=== PATIENT | male | born 1985 | race Caucasian/White ===

== ENCOUNTER 2016-03-24 08:32 | Outpatient (CLI) | payer OTHER ==
--- NOTE | 2016-03-24 13:31 | MRI Report ---
EXAM: MRI PELVIS WITHOUT CONTRAST EXAM DATE: 03/24/2016 09:34 AM. CLINICAL HISTORY: Localized swelling. Painful nodule in the inguinal region for 6 months. COMPARISON: None. TECHNIQUE: Multiplanar, multisequence T1-weighted and fluid-sensitive sequences of the pelvis without contrast. Other: None. FINDINGS: Bones: No fractures or subluxations. No marrow edema or bone lesions. Lower Lumbar Spine: Unremarkable. Sacroiliac Joints: No effusion or sacroiliitis. Right Hip: Mild osteophyte formation is present. Left Hip: Mild osteophyte formation is present. Symphysis Pubis: Unremarkable. Musculature: There is mild edema in the proximal left iliopsoas tendon (series 601, image 18). No fat ty atrophy. Pelvic Cavity: The visualized bowel, bladder, and reproductive organs are unremarkable. No lymphadeno shelby. No free fluid in the pelvis. Other: The visualized sciatic nerves are unremarkable. A mild amount of fluid is in the right iliopso as bursa. Near the marker indicating the site of the palpable abnormality in the right groin, there a re two normal-appearing lymph nodes, not asymmetric to the contralateral side. No obvious masses. No obvious hernias. IMPRESSION: 1. In the right groin region, there are normal-appearing lymph nodes. 2. Mild right iliopsoas bursitis. 3. A grade 1 strain of the proximal left iliopsoas tendon. [facility] MUSCULOSKELETAL RADIOLOGY SECTION Referring Provider Line: [phone] SITE ID: [id number]
== END 2016-03-24 08:33 | disposition home or self-care (01) ==
LOC: DI 08:32
PROVIDERS: ATTEND Orthopaedic Surgery
DX: S39.011A Strain of muscle, fascia and tendon of abdomen, initial encounter (principal); M71.58 Other bursitis, not elsewhere classified, other site; R19.09 Other intra-abdominal and pelvic swelling, mass and lump
CPT/HCPCS: 72195